=== PATIENT | female | born 1995 ===

== ENCOUNTER 2018-08-30 08:40 | Emergency (ER) | payer OTHER ==
[2018-08-30 09:19] VITALS: RESP 18; TEMP 98.6; O2SAT 100
--- NOTE | 2018-08-30 10:30 | ED PDOC ---
HPI: Abdomen Time Seen by Provider: 08/30/18 09:49 Chief Complaint (Nursing): Abdominal Pain Chief Complaint (Provider): abdominal pain History Per: Patient (22 y/o female here with intermittent lower abdominal pain radiating to back associated with dysuria. Denies any fe vers/chills/vomiting/diarrhea. No h/o abd surgeries. Has not been sexually active x months.) Past Medical History Reviewed: Historical Data, Nursing Documentation, Vital Signs Vital Signs: Last Vital Signs Temp 98.6 F 08/30/18 09:18 Pulse 75 08/30/18 09:18 Resp 18 08/30/18 09:18 BP 111/63 08/30/18 09:18 Pulse Ox 100 08/30/18 09:18 - Family History Family History: States: No Known Family Hx - Home Medications Home Medications: Ambulatory Orders Medication Instructions Recorded Miconazole Nitrate [Monistat 3] 1 each VG DAILY #1 kit 08/30/18 - Allergies Allergies/Adverse Reactions: Allergies Allergy/AdvReac Type Severity Reaction Status Date / Time No Known Allergies Allergy Verified 08/30/18 09:33 Review of Systems ROS Statement: Except As Marked, All Systems Reviewed And Found Negative - Laboratory Results Result Diagrams: 08/30/18 11:25 08/30/18 11:25 - ECG O2 Sat by Pulse Oximetry: 100 Disposition - Clinical Impression Clinical Impression: Abdominal pain in female - Patient ED Disposition Is Patient to be Admitted: No - Disposition Referrals: [facility] [Outside] Disposition: Routine/Home Disposition Time: 13:22 Condition: FAIR Prescriptions: Miconazole Nitrate [Monistat 3] 1 each VG DAILY #1 kit Instructions: Acute Abdomen (Belly Pain), Adult (DC) Forms: [facility] ED School/Work Excuse Print Language: [place]
[2018-08-30 11:29] LABS: SQUAMOUS EPITHIAL 1 /hpf (0-5); URINE BACTERIA RARE (<OCC); URINE BILIRUBIN NEGATIVE (NEGATIVE); URINE BLOOD NEGATIVE (NEGATIVE); URINE CLARITY CLEAR (Clear); URINE COLOR YELLOW (YELLOW); URINE GLUCOSE (UA) NEG (NEGATIVE); URINE LEUKOCYTE ESTERASE NEG Leu/uL (Negative); URINE PROTEIN 30 mg/dL (NEGATIVE); URINE UROBILINOGEN 0.2-1.0 mg/dL (0.2-1.0)
[2018-08-30 11:51] LABS: BASO % 0.3 % (0.0-2.0); EOS # 2.5 K/uL (0.0-0.7); EOS % 23.3 % (0.0-4.0); HEMOGLOBIN 11.5 g/dL (12.0-16.0); LYMPH # 2.9 K/uL (1.0-4.3); LYMPH % 26.9 % (20.0-40.0); MEAN CELL VOLUME 83.1 fl (81.0-99.0); MEAN CORPUSCULAR HEMOGLOBIN 27.6 pg (27.0-31.0); MEAN CORPUSCULAR HGB CONC 33.2 g/dL (33.0-37.0); MEAN PLATELET VOLUME 9.1 fl (7.2-11.7); MONO # 0.5 K/uL (0.0-0.8); NEUT # 4.7 K/uL (1.8-7.0); NEUT % 44.5 % (50.0-75.0); NRBC % 0.1 % (0.0-0.0); PLATELET COUNT 195 K/uL (130-400); RBC 4.16 Mil/uL (3.80-5.20); WHITE BLOOD COUNT 10.6 K/uL (4.8-10.8)
[2018-08-30 11:58] LABS: ALB/GLOB RATIO 1.1 (1.0-2.1); ALT/SGPT 22 U/L (9-52); AST/SGOT 32 U/L (14-36); BLOOD UREA NITROGEN 18 mg/dl (7-17); GFR NON-AFRICAN AMERICAN 55; LIPASE 44 U/L (23-300)
--- NOTE | 2018-08-30 12:37 | US ---
Date of service: 08/30/2018 HISTORY: left adnexal tenderness LMP approximately 4 months ago. Irregular cycles COMPARISON: None available. TECHNIQUE: Transvaginal only. Real -time technique with 2D, duplex and color Doppler FINDINGS: UTERUS: Measures 3.7 x 5.1 x 5.3 cm. Normal in size and appearance. No fibroid or other mass lesion seen. ENDOMETRIUM: Measures 20.3 mm in diameter. Unremarkable. CERVIX: No cervical abnormality identified. RIGHT OVARY: Measures 1.9 x 2.9 x 4.6 cm. No solid mass. Normal flow. Multiple subcentimeter follicles. LEFT OVARY: Measures 1.6 x 3.4 x 3.8 cm. No solid mass. Normal flow. Multiple subcentimeter follicles. FREE FLUID: No significant free fluid noted. OTHER FINDINGS: None. IMPRESSION: Unremarkable pelvic ultrasound.
[2018-08-30 12:58] LABS: EOSINOPHIL 15 % (0-7); LYMPHOCYTE 25 % (20-50); MONOCYTE 8 % (0-10); NEUTROPHIL 52 % (42-75); PLATELET ESTIMATE NORMAL (NORMAL); TOTAL CELLS COUNTED 100
[2018-08-30 12:59] LABS: ANISOCYTOSIS SLIGHT
[2018-08-30 13:00] LABS: LARGE PLATELETS PRESENT; OVALOCYTES SLIGHT
[2018-08-30 13:39] VITALS: BP 110/70; PULSE 72
== END 2018-08-30 13:38 | disposition home or self-care (01) ==
LOC: H.ER 08:40
DX: R10.9 Unspecified abdominal pain (principal)